=== PATIENT | male | born 1960 | race Caucasian/White ===

== ENCOUNTER 2016-06-27 04:42 | Emergency (ER) | payer OTHER ==
[~2016-06-27] VITALS: Ht 172.7 cm; Wt 86.2 kg
[~2016-06-27 04:42] MED LIST: AMITRIPTYLINE H10 M1 PO; ATORVASTATIN CA20 MG PO; CARISOPRODOL350 M1 PO; FLEXERIL10 MG PO; HYDROCODON-ACE1 EAC1 PO; LISINOPRIL10 MG PO; MULTI-DAY VITA1 EACH PO; NORCO 5-325 TA1 EACH PO; SOMA250 M1 PO; VICODIN HP 3001 TAB PO; VICODIN5-300 PO
[2016-06-27 05:18] LABS: ABSOLUTE BASOPHIL COUNT 0 /CUMM (0.0-0.2); ABSOLUTE EOSINOPHIL COUNT 0.1 /CUMM (0.0-0.7); ABSOLUTE GRANULOCYTE CT 3.6 /CUMM (1.4-6.5); ABSOLUTE LYMPH COUNT 1.6 /CUMM (1.2-3.4); ABSOLUTE MONOCYTE COUNT 0.5 /CUMM (0.10-0.60); BASOPHIL % 0.5 % (0.0-2.0); EOSINOPHIL % 1.9 % (0-5); MEAN CORPUSCULAR HGB 30.1 PG (27.0-31.0); MEAN PLATELET VOLUME 8.5 FL (7.4-10.4); PLATELET COUNT 184 /CUMM (130-400); RBC DISTRIBUTION WIDTH 13.1 % (11.5-14.5); RED BLOOD CELL CT 4.94 /CUMM (4.70-6.10); WHITE BLOOD CELL COUNT 5.9 /CUMM (4.8-10.8)
--- NOTE | 2016-06-27 05:32 | CT SCAN REPORT ---
EXAMINATION: CT ABDOMEN AND PELVIS WITHOUT CONTRAST CLINICAL INFORMATION: Right flank pain. History of kidney stones. COMPARISON: CT scan abdomen pelvis 01/24/2016 TECHNIQUE: Multidetector volumetric imaging was performed from the superior aspect of the liver through the pubic symphysis. Sagittal and coronal reformatted images were obtained on the technologist's workstation. No oral or intravenous contrast. DLP: 590.52 mGy-cm FINDINGS: LUNG BASES: The visualized lung bases are unremarkable. LIVER, GALLBLADDER, AND BILIARY TREE: The liver is normal in size, shape, and attenuation. No focal hepatic lesion or biliary ductal dilatation is present. The gallbladder is unremarkable with no evidence of radiopaque gallstones, gallbladder wall thickening, or obvious pericholecystic inflammatory changes. PANCREAS: Unremarkable. SPLEEN: Unremarkable. ADRENAL GLANDS: Unremarkable. KIDNEYS AND URETERS: There is hydronephrosis of right kidney with dilatation of the right renal pelvis and calyces and proximal right ureter. There is obstructing stones at the mid right ureter at about the level of the L4 vertebrae. 2 adjacent stones. These 2 stones together measure 0.8 x 0.3 cm in size, coronal image 602. There are multiple additional stones in the right kidney. These range in size from about 1 mm to the largest in the midpole right kidney measuring 6 mm. There are multiple stones in left kidney as well. Largest in the upper pole measuring 9 mm. No hydronephrosis of left kidney. No left ureteral stone. BLADDER: Unremarkable. GASTROINTESTINAL TRACT: There is mild diverticulosis of colon. Most of the diverticula in the left colon. No diverticulitis. No bowel wall thickening or edema. No bowel obstruction. Moderate volume of stool throughout the colon. The appendix is normal. Small bowel loops are unremarkable. ABDOMINAL WALL: No significant hernia is appreciated. LYMPH NODES: Normal. VASCULAR: Atherosclerotic vascular wall calcifications of aorta and iliac vessels without aneurysm. PELVIC VISCERA: Coarse calcifications within the prostate. OSSEOUS STRUCTURES: Unremarkable. IMPRESSION: Hydronephrosis of right kidney due to an obstructing stones in the mid right ureter. Additional multiple bilateral nonobstructive renal calculi.
--- NOTE | 2016-06-27 05:41 | ED GI/GU/ABDOMINAL COMPLAINT ---
History of Present Illness General Chief Complaint: Abdominal Pain/Flank Pain Stated Complaint: ? KIDNEY STONE HX OF SAME Source: patient, old records Exam Limitations: no limitations Vital Signs & Intake/Output Vital Signs & Intake/Output Vital Signs Date Time Temp Pulse Resp B/P Pulse O2 O2 Flow FiO2 Ox Delivery Rate 06/27 0505 97 Room Air 06/27 0453 97.8 83 18 164/97 96 Room Air Allergies Coded Allergies: Penicillins (HIVES 01/24/16) Sulfa (Sulfonamide Antibiotics) (HIVES 01/24/16) codeine (HIVES 01/24/16) Reconcile Medications Atorvastatin Calcium (Lipitor) 20 MG TAB 1 TAB PO DAILY CHOLESTEROL (Reported ) Carisoprodol 350 MG TABLET 1 TAB PO PRN MUSCLE RELAXER (Reported) Carisoprodol (SOMA) 250 MG TABLET 1 TAB PO BID PAIN Hydrocodone/Acetaminophen (Hydrocodon-Acetaminophn 10-325) 10 MG-325 MG TABLET 1 TAB PO PRN PAIN (Reported) Hydrocodone/Acetaminophen ([place] 5-325 Tablet) 5 MG-325 MG TABLET 1 TAB PO Q4- 6 PRN PRN PAIN Ketorolac Tromethamine 10 MG TABLET 1 TAB PO Q6P PRN kidney stone patient received IV Toradol in the emergency department Lisinopril 10 MG TAB 1 TAB PO DAILY BP (Reported) Multivitamin (Multi-Day Vitamins) 1 EACH TABLET 1 TAB PO DAILY SUPPLEMENT ( Reported) Oxycodone HCl/Acetaminophen (Percocet 5-325 MG Tablet) 5 MG-325 MG TABLET 1-2 TAB PO Q6P PRN pain Tamsulosin HCl (Flomax) 0.4 MG CAP.ER.24H 1 CAP PO DAILY KIDNEY STONE Triage Note: PT FROM HOME C/O KIDNEY STONES? PT STATES AROUND 0300 HE AWOKE WITH A SHARP RIGHT SIDED FLANK PAIN. PT NAUSEA DENIES VOMITTING/D. PT STATES HX OF KIDNEY STONES AND KNOWS IT IS ONE. PT STATES LAST WEEK "I THINK I PASSED A STONE,I WAS PEEING BLOOD" AWAITING PROVIDER EVAL Triage Nurses Notes Reviewed? yes HPI: Patient presents for evaluation of right flank pain that began suddenly awakening him from sleep tonight. Patient states that last week had episodes of hematuria and back pain. He has had multiple kidney stones in the past and did not think much of those episodes as he was not having any flank pain. Tonight however he began having flank pain consistent with prior kidney stone episodes. The pain is severe sharp and constant. Nothing seems to make him feel better. Past History Travel History Traveled to [place] past 21 day No Medical History Any Pertinent Medical History? see below for history Cardiovascular: hypertension, hyperlipidemia Renal: nephrolithiasis Surgical History Surgical History: non-contributory Psychosocial History What is your primary language Honduran Tobacco Use: Never used ETOH Use: occasional use Family History Hx Contributory? No Review of Systems Review of Systems Constitutional: Reports: no symptoms. EENTM: Reports: no symptoms. Respiratory: Reports: no symptoms. Cardiovascular: Reports: no symptoms. GI: Reports: no symptoms. Genitourinary: Reports: see HPI. Musculoskeletal: Reports: no symptoms. Skin: Reports: no symptoms. Neurological/Psychological: Reports: no symptoms. Hematologic/Endocrine: Reports: no symptoms. Immunologic/Allergic: Reports: no symptoms. All Other Systems: Reviewed and Negative Physical Exam Physical Exam Gastrointestinal: see below Comments: Gen.: Well-nourished, well-developed, no acute respiratory distress. Moderate distress secondary to right flank pain. Head: Normocephalic, atraumatic. Eyes: Normal inspection bilaterally Ears: Normal inspection bilaterally Nose: Normal inspection Throat/mouth : Moist mucosa Neck: Supple, full range of motion, no goiter Heart: Regular rate and rhythm, no murmurs rubs or gallops Lungs: Clear to auscultation bilaterally with normal air entry Chest: Nontender Back: Normal range of motion, mild right CVAT Abdomen: Soft, nontender, nondistended, normal bowel sounds Extremities: Normal range of motion grossly, equal radial pulses, no cyanosis clubbing or edema Neurologic: Cranial nerves grossly intact, speech is clear Skin: warm and dry Psychiatric: Calm, cooperative, no apparent delusions or hallucinations Core Measures ACS in differential dx? No Severe Sepsis Present: No Septic Shock Present: No Progress Differential Diagnosis: ureterolithiasis Plan of Care: Orders Procedure Date/time Status URINALYSIS 06/27 0500 Active LIPASE 06/27 0500 Complete COMPREHENSIVE METABOLIC PANEL 06/27 0500 Complete CBC WITHOUT DIFFERENTIAL 06/27 0500 Complete Current Medications Sig/Cristiano Start time Last Medication Dose Stop Time Status Admin Oxycodone/ 2 TAB ONCE ONE 06/27 0600 UNVr Acetaminophen 06/27 0601 (Percocet) Laboratory Tests 06/27/16 0505: Anion Gap 9, Estimated GFR > 60, BUN/Creatinine Ratio 26.3 H, Glucose 127 H, Calcium 9.9, Total Bilirubin 0.5, AST 23, ALT 42, Alkaline Phosphatase 67, Total Protein 7.8, Albumin 4.3, Globulin 3.5, Albumin/Globulin Ratio 1.2, Lipase 92, CBC w Diff NO MAN DIFF REQ, RBC 4.94, MCV 91.0, MCH 30.1, RDW 13.1, MPV 8.5, Gran % 62.0, Lymphocytes % 27.0, Monocytes % 8.6, Eosinophils % 1.9, Basophils % 0.5, Absolute Granulocytes 3.6, Absolute Lymphocytes 1.6, Absolute Monocytes 0.5 , Absolute Eosinophils 0.1, Absolute Basophils 0, PUBS MCHC 33.0 Diagnostic Imaging: Discussed w/RAD: CT Scan. Radiology Impression: PATIENT: GERMAN LANE PRESENT AGE: 55 PATIENT ACCOUNT NO: [id number] : 60 LOCATION: [facility] ORDERING PHYSICIAN: RUBEN BISWAS MD SERVICE DATE: 06/27/16 EXAM TYPE: CAT - CT ABD & PELVIS W/O IV CONTRAS EXAMINATION: CT ABDOMEN AND PELVIS WITHOUT CONTRAST CLINICAL INFORMATION: Right flank pain. History of kidney stones. COMPARISON: CT scan abdomen pelvis 01/24/2016 TECHNIQUE: Multidetector volumetric imaging was performed from the superior aspect of the liver through the pubic symphysis. Sagittal and coronal reformatted images were obtained on the technologist's workstation. No oral or intravenous contrast. DLP: 590.52 mGy-cm FINDINGS: LUNG BASES: The visualized lung bases are unremarkable. LIVER, GALLBLADDER, AND BILIARY TREE: The liver is normal in size, shape, and attenuation. No focal hepatic lesion or biliary ductal dilatation is present. The gallbladder is unremarkable with no evidence of radiopaque gallstones, gallbladder wall thickening, or obvious pericholecystic inflammatory changes. PANCREAS: Unremarkable. SPLEEN: Unremarkable. ADRENAL GLANDS: Unremarkable. KIDNEYS AND URETERS: There is hydronephrosis of right kidney with dilatation of the right renal pelvis and calyces and proximal right ureter. There is obstructing stones at the mid right ureter at about the level of the L4 vertebrae. 2 adjacent stones. These 2 stones together measure 0.8 x 0.3 cm in size, coronal image 602. There are multiple additional stones in the right kidney. These range in size from about 1 mm to the largest in the midpole right kidney measuring 6 mm. There are multiple stones in left kidney as well. Largest in the upper pole measuring 9 mm. No hydronephrosis of left kidney. No left ureteral stone. BLADDER: Unremarkable. GASTROINTESTINAL TRACT: There is mild diverticulosis of colon. Most of the diverticula in the left colon. No diverticulitis. No bowel wall thickening or edema. No bowel obstruction. Moderate volume of stool throughout the colon. The appendix is normal. Small bowel loops are unremarkable. ABDOMINAL WALL: No significant hernia is appreciated. LYMPH NODES: Normal. VASCULAR: Atherosclerotic vascular wall calcifications of aorta and iliac vessels without aneurysm. PELVIC VISCERA: Coarse calcifications within the prostate. OSSEOUS STRUCTURES: Unremarkable. IMPRESSION: Hydronephrosis of right kidney due to an obstructing stones in the mid right ureter. Additional multiple bilateral nonobstructive renal calculi. DICTATED BY: VERÓNICA BETANCOURT MD DATE/TIME DICTATED:520 PRODUCTION RECORDER:ANITA DATE/TIME TRANSCRIBED:06/27/16520 CONFIDENTIAL, DO NOT COPY WITHOUT APPROPRIATE AUTHORIZATION. <Electronically signed in Other Vendor System> SIGNED BY: VERÓNICA BETANCOURT MD 06/27/16 0532 Initial ED EKG: none Comments: 06/27/2016 5:47:22 AM patient updated on test results. He feels much better than when his pain started. I will convert him over to Percocet and he will follow up with Dr. Escalera. Departure Departure Disposition: HOME OR SELF CARE Condition: Stable Clinical Impression Primary Impression: Ureterolithiasis Referrals: TATI ASTUDILLO,MATT Dunham (PCP/Family) Additional Instructions: Toradol, flomax and Percocet as prescribed. Follow-up with your urologist tomorrow for reevaluation. Return if any concerns or sudden worsening. Please note that there might be incidental findings in your evaluation that are unrelated to the current emergency department visit. Please notify your primary care doctor about this emergency department visit in order to obtain and review all of the testing performed so that these incidental findings can be monitored as needed. If you had an x-ray performed, please understand that some fractures may not be seen on the initial set of x-rays. If your symptoms persist you might need a repeat set of x-rays to check for such a fracture. If you had a laceration evaluated, please understand that foreign bodies such as glass or wood may not be visible to the naked eye or on plain x-rays. If the wound becomes red, swollen, increasingly more painful or if there is any drainage from the wound, please have it reevaluated by a physician for the possibility of a retained foreign body. Thank you for choosing the [facility] Emergency Department for your care. It was a pleasure to serve you today. Ruben Biswas M.D. [facility] Departure Forms: Customer Survey General Discharge Information Prescriptions: Current Visit Scripts Ketorolac Tromethamine 1 TAB PO Q6P PRN kidney stone #16 TAB patient received IV Toradol in the emergency department Oxycodone HCl/Acetaminophen (Percocet 5-325 MG Tablet) 1-2 TAB PO Q6P PRN pain #20 TAB Tamsulosin HCl (Flomax) 1 CAP PO DAILY #5 CAP Critical Care Note Critical Care Note Critical Care Time: 30-74 min
[2016-06-27] MEDS ORDERED: KETOROLAC TROME10 M1 PO (05:49)
[2016-06-27] MEDS ORDERED: FLOMAX0.4 M1 PO (05:49)
[2016-06-27] MEDS ORDERED: PERCOCET 5-3251 EACH PO (05:49)
[2016-06-27 05:51] VITALS: BP 152/88
[2016-06-28] MEDS ORDERED: ZOFRAN ODT4 M1 SL (06:47)
[2016-06-28] MEDS ORDERED: PERCOCET 5-3251 EACH PO (11:09)
== END 2016-06-27 06:04 ==
LOC: ERH 04:42
PROVIDERS: Emergency Medicine
DX: N20.1 Calculus of ureter (principal)
CPT/HCPCS: 74176; 96361; 96374; 96375; J1885; J2405

== ENCOUNTER 2016-06-28 06:07 | Emergency (ER) | payer OTHER ==
[~2016-06-28] VITALS: Ht 172.7 cm; Wt 86.2 kg
[~2016-06-28 06:07] MED LIST changes: +FLOMAX0.4 M1 PO; +KETOROLAC TROME10 M1 PO; +PERCOCET 5-3251 EACH PO
--- NOTE | 2016-06-28 06:22 | ED GI/GU/ABDOMINAL COMPLAINT ---
See Addendum History of Present Illness General Chief Complaint: Abdominal Pain/Flank Pain Stated Complaint: "I HAVE KIDNEY STONES" Source: patient Exam Limitations: no limitations Vital Signs & Intake/Output Vital Signs & Intake/Output Vital Signs Date Time Temp Pulse Resp B/P Pulse O2 O2 Flow FiO2 Ox Delivery Rate 06/28 0845 98.2 88 18 151/97 99 Room Air 06/28 0701 98.4 87 18 144/87 100 Room Air 06/28 0629 100 Room Air 06/28 0620 96.8 100 20 173/95 95 Room Air Allergies Coded Allergies: Penicillins (HIVES 01/24/16) Sulfa (Sulfonamide Antibiotics) (HIVES 01/24/16) codeine (HIVES 01/24/16) Triage Note: PT STATES HE WAS HERE 2 MORNING AGO AND DIAGNOSED WITH A KIDNEY STONE. PT STATES HE WAS SENT HOME WITH SCRIPTS FOR FLOMAX, TORADOL AND PERCOCET. PT STATES PAIN WAS FINE YESTERDAY BECAUSE HE TOOK MEDS SCHEDULED, BUT HE WOKE UP THIS MORNING WITH SEVERE PAIN. PER PT HE HAS NOT TAKEN HIS PRESCRIBED PAIN MEDS THIS MORNING. Triage Nurses Notes Reviewed? yes Onset: Gradual Duration: hour(s): Timing: recent history Quality/Severity: stabbing Location: right flank Radiation: no radiation Activities at Onset: sleep Prior Abdominal Problems: similar symptoms Modifying Factors: Improves With: other (BETTER WITH PERCOCET). Associated Symptoms: abdominal pain, nausea/vomiting HPI: 55 yo gentleman h/o kidney stones, presents with right flank pain, consistent with prior episodes of renal colic. He notes that he was seen here yesterday for similar symptoms, had a ct scan which revealed 2 kidney stones, togther measuring 8mm. He states, "Yesterday, I went home, I took percocet... I was fine all day, but when I woke up the pain came back." He notes mild nausea, no vomiting. He is otherwise well. (GENARO ASTUDILLO,CASTRO Miller) Reconcile Medications Atorvastatin Calcium (Lipitor) 20 MG TAB 1 TAB PO DAILY CHOLESTEROL (Reported ) Carisoprodol 350 MG TABLET 1 TAB PO PRN MUSCLE RELAXER (Reported) Carisoprodol (SOMA) 250 MG TABLET 1 TAB PO BID PAIN Hydrocodone/Acetaminophen (Hydrocodon-Acetaminophn 10-325) 10 MG-325 MG TABLET 1 TAB PO PRN PAIN (Reported) Hydrocodone/Acetaminophen ([place] 5-325 Tablet) 5 MG-325 MG TABLET 1 TAB PO Q4- 6 PRN PRN PAIN Ketorolac Tromethamine 10 MG TABLET 1 TAB PO Q6P PRN kidney stone patient received IV Toradol in the emergency department Lisinopril 10 MG TAB 1 TAB PO DAILY BP (Reported) Multivitamin (Multi-Day Vitamins) 1 EACH TABLET 1 TAB PO DAILY SUPPLEMENT ( Reported) Ondansetron (Zofran Odt) 4 MG TAB.RAPDIS 1 TAB SL TID PRN nausea Oxycodone HCl/Acetaminophen (Percocet 5-325 MG Tablet) 5 MG-325 MG TABLET 1-2 TAB PO Q6P PRN pain Tamsulosin HCl (Flomax) 0.4 MG CAP.ER.24H 1 CAP PO DAILY KIDNEY STONE (JAMES CEDENO DO) Past History Travel History Traveled to [place] past 21 day No Medical History Any Pertinent Medical History? see below for history Cardiovascular: hypertension, hyperlipidemia Renal: nephrolithiasis Surgical History Surgical History: non-contributory Psychosocial History What is your primary language Maltese Tobacco Use: Never used ETOH Use: occasional use Illicit Drug Use: denies illicit drug use Family History Hx Contributory? No (GENARO ASTUDILLO,CASTRO Miller) Review of Systems Review of Systems Constitutional: Reports: no symptoms. EENTM: Reports: no symptoms. Respiratory: Reports: no symptoms. Cardiovascular: Reports: no symptoms. GI: Reports: no symptoms. Genitourinary: Reports: no symptoms. Musculoskeletal: Reports: no symptoms. Skin: Reports: no symptoms. Neurological/Psychological: Reports: no symptoms. Hematologic/Endocrine: Reports: no symptoms. Immunologic/Allergic: Reports: no symptoms. All Other Systems: Reviewed and Negative (GENARO ASTUDILLO,CASTRO Miller) Physical Exam Physical Exam General Appearance: well developed/nourished, mild distress, moderate distress Head: atraumatic, normal appearance Eyes: Bilateral: normal appearance. Ears, Nose, Throat, Mouth: hearing grossly normal Neck: normal inspection, supple, full range of motion, normal alignment Respiratory: normal breath sounds, chest non-tender, no respiratory distress, quiet respiration, lungs clear Cardiovascular: regular rate/rhythm Gastrointestinal: normal bowel sounds, soft, non-tender, no organomegaly Back: normal inspection, normal range of motion Extremities: normal range of motion Neurologic/Psych: no motor/sensory deficits, awake, alert, oriented x 3 Skin: intact, normal color, warm/dry Core Measures ACS in differential dx? No Severe Sepsis Present: No Septic Shock Present: No (GENARO ASTUDILLO,CASTRO Miller) Progress Differential Diagnosis: renal colic vs kidney stones vs back pain vs other. Plan of Care: Orders Procedure Date/time Status Nothing by Mouth 06/[address] in observation 06/28 924 Active Code Status 06/28 924 Active URINALYSIS 06/28 621 Complete LIPASE 06/28 621 Complete HEPATIC FUNCTION PANEL 06/28 621 Complete CBC WITHOUT DIFFERENTIAL 06/28 621 Complete BASIC METABOLIC PANEL 06/28 621 Complete AMYLASE 06/28 621 Complete Current Medications Sig/Cristiano Start time Last Medication Dose Stop Time Status Admin Lisinopril 10 MG ONCE ONE 06/28 929 AC (Prinivil) 06/28 930 Tamsulosin HCl 0.4 MG ONCE ONE 06/28 929 AC (Flomax) 06/28 930 Laboratory Tests 06/28/16 0653: Urinalysis LIGHT H, Urine Color YEL, Urine Clarity CLEAR, Urine pH 6.0, Ur Specific [place] >= 1.030, Urine Protein NEG, Urine Ketones NEG, Urine Nitrite NEG, Urine Bilirubin NEG, Urine Urobilinogen 0.2, Ur Leukocyte Esterase NEG, Ur Microscopic SEDIMENT EXAMINED, Urine RBC 25-50 H, Urine WBC RARE, Ur Epithelial Cells FEW, Urine Bacteria RARE H, Urine Mucus MOD H, Urine Hemoglobin MOD H, Urine Glucose NEG 06/28/16629: Anion Gap 6, Estimated GFR > 60, BUN/Creatinine Ratio 22.0, Glucose 122 H, Calcium 9.5, Total Bilirubin 0.5, Direct Bilirubin 0.4, AST 23, ALT 42, Alkaline Phosphatase 66, Total Protein 7.1, Albumin 4.1, Amylase 87, Lipase 350 H, CBC w Diff NO MAN DIFF REQ, RBC 4.77, MCV 90.9, MCH 30.1, RDW 13.6, MPV 8.2, Gran % 65.7, Lymphocytes % 20.8, Monocytes % 11.2 H, Eosinophils % 1.9, Basophils % 0.4, Absolute Granulocytes 6.2, Absolute Lymphocytes 2.0, Absolute Monocytes 1.1 H, Absolute Eosinophils 0.2, Absolute Basophils 0, PUBS MCHC 33.2 Diagnostic Imaging: Viewed by Me: CT Scan. Discussed w/RAD: CT Scan. Radiology Impression: abd/pelvic ct... 8x3mm right mid ureteral stone. Initial ED EKG: none Hand-Off Endorsed To: JAMES CEDENO DO Pending: labs Comments: PATIENT: GERMAN [address] PRESENT AGE: 55 PATIENT ACCOUNT NO: [id number] : 60 LOCATION: [facility] ORDERING PHYSICIAN: JAMES MCDONALD MD SERVICE DATE: 06/27/16 EXAM TYPE: CAT - CT ABD & PELVIS W/O IV CONTRAS EXAMINATION: CT ABDOMEN AND PELVIS WITHOUT CONTRAST CLINICAL INFORMATION: Right flank pain. History of kidney stones. COMPARISON: CT scan abdomen pelvis 01/24/2016 TECHNIQUE: Multidetector volumetric imaging was performed from the superior aspect of the liver through the pubic symphysis. Sagittal and coronal reformatted images were obtained on the technologist's workstation. No oral or intravenous contrast. DLP: 590.52 mGy-cm FINDINGS: LUNG BASES: The visualized lung bases are unremarkable. LIVER, GALLBLADDER, AND BILIARY TREE: The liver is normal in size, shape, and attenuation. No focal hepatic lesion or biliary ductal dilatation is present. The gallbladder is unremarkable with no evidence of radiopaque gallstones, gallbladder wall thickening, or obvious pericholecystic inflammatory changes. PANCREAS: Unremarkable. SPLEEN: Unremarkable. ADRENAL GLANDS: Unremarkable. KIDNEYS AND URETERS: There is hydronephrosis of right kidney with dilatation of the right renal pelvis and calyces and proximal right ureter. There is obstructing stones at the mid right ureter at about the level of the L4 vertebrae. 2 adjacent stones. These 2 stones together measure 0.8 x 0.3 cm in size, coronal image 602. There are multiple additional stones in the right kidney. These range in size from about 1 mm to the largest in the midpole right kidney measuring 6 mm. There are multiple stones in left kidney as well. Largest in the upper pole measuring 9 mm. No hydronephrosis of left kidney. No left ureteral stone. BLADDER: Unremarkable. GASTROINTESTINAL TRACT: There is mild diverticulosis of colon. Most of the diverticula in the left colon. No diverticulitis. No bowel wall thickening or edema. No bowel obstruction. Moderate volume of stool throughout the colon. The appendix is normal. Small bowel loops are unremarkable. ABDOMINAL WALL: No significant hernia is appreciated. LYMPH NODES: Normal. VASCULAR: Atherosclerotic vascular wall calcifications of aorta and iliac vessels without aneurysm. PELVIC VISCERA: Coarse calcifications within the prostate. OSSEOUS STRUCTURES: Unremarkable. IMPRESSION: Hydronephrosis of right kidney due to an obstructing stones in the mid right ureter. Additional multiple bilateral nonobstructive renal calculi. DICTATED BY: VERÓNICA BETANCOURT MD DATE/TIME DICTATED:06/27/16520 BUGGY OPERATOR:ANITA DATE/TIME TRANSCRIBED:06/27/16520 CONFIDENTIAL, DO NOT COPY WITHOUT APPROPRIATE AUTHORIZATION. <Electronically signed in Other Vendor System> SIGNED BY: VERÓNICA BETANCOURT MD 06/27/16 0532 (GENARO ASTUDILLO,CASTRO Miller) Departure Departure Disposition: STILL A PATIENT Condition: Stable Clinical Impression Primary Impression: Renal colic Referrals: TATI ASTUDILLO,MATT Dunham (PCP/Family) Departure Forms: Customer Survey General Discharge Information (GENARO ASTUDILLO,CASTRO Miller) Departure Prescriptions: Current Visit Scripts Ondansetron (Zofran Odt) 1 TAB SL TID PRN nausea #10 TAB Comments 06/28/16 The patient was signed out to me by Dr. Pierce at 7 AM. He is having ongoing severe right-sided flank pain. He is requiring multiple doses of IV Dilaudid. He has a known 8 mm stone. I paged Dr. Escalera and waiting for call back. Observation Note Spoke With: DEONNA ASTUDILLORICHMOND Physician Advisor Notified: JAMES CEDENO DO Place Patient In: Non-ED OBS Care Area Rationale for Observation: My rational for observation is as follows [the patient needs to be placed in observation for IV fluids, IV pain medication, likely lithotripsy and stent placement in the morning.]. 06/28/16 9:30 AM The patient has been placed under Dr. Escalera's service to inpatient observation. The surgical PAs been paged. The patient had been signed out to me by Dr. Pierce at 7 AM (JAMES CEDENO DO)
[2016-06-28 06:37] LABS: ABSOLUTE BASOPHIL COUNT 0 /CUMM (0.0-0.2); ABSOLUTE EOSINOPHIL COUNT 0.2 /CUMM (0.0-0.7); ABSOLUTE GRANULOCYTE CT 6.2 /CUMM (1.4-6.5); ABSOLUTE MONOCYTE COUNT 1.1 /CUMM (0.10-0.60); BASOPHIL % 0.4 % (0.0-2.0); EOSINOPHIL % 1.9 % (0-5); GRANULOCYTE % 65.7 % (42.2-75.2); HEMATOCRIT 43.4 % (42-52); MEAN CORPUSCULAR HGB 30.1 PG (27.0-31.0); MEAN CORPUSCULAR HGB CONC 33.2 G/DL (33.0-37.0); MEAN CORPUSCULAR VOLUME 90.9 FL (80.0-94.0); MEAN PLATELET VOLUME 8.2 FL (7.4-10.4); PLATELET COUNT 175 /CUMM (130-400); RBC DISTRIBUTION WIDTH 13.6 % (11.5-14.5); RED BLOOD CELL CT 4.77 /CUMM (4.70-6.10)
[2016-06-28 06:43] LABS: WHITE BLOOD CELL COUNT 9.4 /CUMM (4.8-10.8)
[2016-06-28] MEDS ORDERED: ZOFRAN ODT4 M1 SL (06:47)
--- NOTE | 2016-06-28 11:02 | Cons- Urology ---
General Information and HPI Consulting Request Date of Consult: 06/28/16 Requested By: Dr. Landa Reason for Consult: Abdominal pain, nephrolithiasis. Source of Information: patient Exam Limitations: no limitations History of Present Illness: Patient is a 55-year-old male with past medical history significant for hypertension, hyperlipidemia, and a history of renal stones who presented to the ED with complaints of acute onset of right flank pain since about 5 AM today. Patient states that he was in the ED early yesterday morning around 3 AM with similar symptoms. CT scan performed at that time revealed to obstructing ureteral stones measuring 8 mm together with right-sided hydronephrosis. Patient was sent home with a prescription for Percocet, which he took intermittently throughout the day and was relatively comfortable until the symptoms returned this morning. The plan was originally to admit patient for 23 hour observation and lithotripsy tomorrow, however while awaiting urologic evaluation, patient was able to void several times and passed 3 very small "stones". Per RN reports, they appeared to be about 1-2 mm and were sent to the lab. Patient now reports complete resolution of pain and is requesting to be discharged home. Allergies/Medications Allergies: Coded Allergies: Penicillins (HIVES 01/24/16) Sulfa (Sulfonamide Antibiotics) (HIVES 01/24/16) codeine (HIVES 01/24/16) Home Med List: Atorvastatin Calcium (Lipitor) 20 MG TAB 1 TAB PO DAILY CHOLESTEROL (Reported ) Carisoprodol 350 MG TABLET 1 TAB PO PRN MUSCLE RELAXER (Reported) Carisoprodol (SOMA) 250 MG TABLET 1 TAB PO BID PAIN Hydrocodone/Acetaminophen (Hydrocodon-Acetaminophn 10-325) 10 MG-325 MG TABLET 1 TAB PO PRN PAIN (Reported) Hydrocodone/Acetaminophen ([place] 5-325 Tablet) 5 MG-325 MG TABLET 1 TAB PO Q4- 6 PRN PRN PAIN Ketorolac Tromethamine 10 MG TABLET 1 TAB PO Q6P PRN kidney stone patient received IV Toradol in the emergency department Lisinopril 10 MG TAB 1 TAB PO DAILY BP (Reported) Multivitamin (Multi-Day Vitamins) 1 EACH TABLET 1 TAB PO DAILY SUPPLEMENT ( Reported) Ondansetron (Zofran Odt) 4 MG TAB.RAPDIS 1 TAB SL TID PRN nausea Oxycodone HCl/Acetaminophen (Percocet 5-325 MG Tablet) 5 MG-325 MG TABLET 1-2 TAB PO Q6P PRN pain Oxycodone HCl/Acetaminophen (Percocet 5-325 MG Tablet) 5 MG-325 MG TABLET 1 TAB PO BID PRN pain Tamsulosin HCl (Flomax) 0.4 MG CAP.ER.24H 1 CAP PO DAILY KIDNEY STONE Past History Medical History Cardiovascular: hypertension, hyperlipidemia Renal: nephrolithiasis Surgical History Pertinent Surgical History: right shoulder surgery x2, right knee surgery Psychosocial History Where Do You Live? Home Who Do You Live With? 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 He appears in no acute distress at this time. He is noted to be ambulating without difficulty. Cardiac: Regular Pulmonary: Lungs are clear bilaterally. Abdomen: Is soft and mildly distended. There is no significant tenderness, guarding, rigidity noted. Normoactive bowel sounds were heard. No costovertebral tenderness. Last 24 Hours of Labs: Laboratory Tests 06/28 04/ 0653 0630 Chemistry Sodium (137 - 145 mmol/L) 139 Potassium (3.5 - 5.1 mmol/L) 4.1 Chloride (98 - 107 mmol/L) 107 Carbon Dioxide (22 - 30 mmol/L) 27 Anion Gap (5 - 16) 6 BUN (9 - 20 mg/dL) 22 H Creatinine (0.7 - 1.2 mg/dL) 1.0 Estimated GFR (>60 ml/min) > 60 BUN/Creatinine Ratio (7 - 25 %) 22.0 Glucose (65 - 99 mg/dL) 122 H Calcium (8.4 - 10.2 mg/dL) 9.5 Total Bilirubin (0.2 - 1.3 mg/dL) 0.5 Direct Bilirubin (< 0.4 mg/dL) 0.4 AST (17 - 59 U/L) 23 ALT (21 - 72 U/L) 42 Alkaline Phosphatase (< 127 U/L) 66 Total Protein (6.3 - 8.2 g/dL) 7.1 Albumin (3.5 - 5.0 g/dL) 4.1 Amylase (30 - 110 U/L) 87 Lipase (23 - 300 U/L) 350 H Hematology CBC w Diff NO MAN DIFF REQ WBC (4.8 - 10.8 /CUMM) 9.4 RBC (4.70 - 6.10 /CUMM) 4.77 Hgb (14.0 - 18.0 G/DL) 14.4 Hct (42 - 52 %) 43.4 MCV (80.0 - 94.0 FL) 90.9 MCH (27.0 - 31.0 PG) 30.1 RDW (11.5 - 14.5 %) 13.6 Plt Count (130 - 400 /CUMM) 175 MPV (7.4 - 10.4 FL) 8.2 Gran % (42.2 - 75.2 %) 65.7 Lymphocytes % (20.5 - 51.1 %) 20.8 Monocytes % (1.7 - 9.3 %) 11.2 H Eosinophils % (0 - 5 %) 1.9 Basophils % (0.0 - 2.0 %) 0.4 Absolute Granulocytes (1.4 - 6.5 /CUMM) 6.2 Absolute Lymphocytes (1.2 - 3.4 /CUMM) 2.0 Absolute Monocytes (0.10 - 0.60 /CUMM) 1.1 H Absolute Eosinophils (0.0 - 0.7 /CUMM) 0.2 Absolute Basophils (0.0 - 0.2 /CUMM) 0 PUBS MCHC (33.0 - 37.0 G/DL) 33.2 Urines Urinalysis LIGHT H Urine Color (YEL,AMB,STR) YEL Urine Clarity (CLEAR) CLEAR Urine pH (5.0 - 8.0) 6.0 Ur Specific [place] (1.001 - 1.035) >= 1.030 Urine Protein (NEG,<30 MG/DL) NEG Urine Ketones (NEG) NEG Urine Nitrite (NEG) NEG Urine Bilirubin (NEG) NEG Urine Urobilinogen (0.1 - 1.0 EU/dl) 0.2 Ur Leukocyte Esterase (NEG) NEG Ur Microscopic SEDIMENT EXAMINED Urine RBC (0 - 5 /HPF) 25-50 H Urine WBC (0 - 2 /HPF) RARE Ur Epithelial Cells (NONE,FEW) FEW Urine Bacteria (NEG/NONE) RARE H Urine Mucus (FEW,NONE) MOD H Urine Hemoglobin (NEG) MOD H Urine Glucose (N MG/DL) NEG Imaging Results: CT scan performed on 07-12 revealed: Assessment/Plan Assessment/Plan Pt is a 55 yo M with a pmh significant for HTN, HLD, and a hx of nephrolithiasis who presents with recurrent renal colic due to obstructing ureteral stones measuring 8mm total between 2 adjacent stones. Pt has since passed what he thinks are 3 small stones, one of which was sent to the lab for analysis ( pending results). He is pain free at this time and requesting discharge home. Dr. Escalera is aware of pt's progress and is agreeable to discharge home with Percocet prn and Flomax. Pt understands the need for increased po fluid intake. He can f/u with Dr. Escalera in his office if symptoms resume. Problem List: 1. Ureterolithiasis 2. Renal colic Consult Acknowledgment - Thank you for your consult request.
[2016-06-28] MEDS ORDERED: PERCOCET 5-3251 EACH PO (11:09)
[2016-06-28 11:10] VITALS: BP 140/86
== END 2016-06-28 11:16 ==
LOC: ERH 06:07
PROVIDERS: Pediatrics
DX: N23 Unspecified renal colic (principal); I10 Essential (primary) hypertension
CPT/HCPCS: 81001; 82355; 96374; 96375; 96376; 99291; J1885; J2405

== ENCOUNTER → 2016-06-29 | Day surgery (SDC) | payer OTHER ==
[~2016-06-29] VITALS: Ht 172.7 cm; Wt 86.2 kg
[~2016-06-29] MED LIST changes: +ZOFRAN ODT4 M1 SL
--- NOTE | 2016-06-29 08:29 | RADIOLOGY REPORT ---
EXAMINATION: XR KIDNEYS, URETER, BLADDER CLINICAL INDICATION: Right kidney stone. Preop for ESWL. COMPARISON: CT of the abdomen and pelvis 06/27/2016. TECHNIQUE: 2 AP supine views of the abdomen are obtained. FINDINGS: There are multiple bilateral renal calculi, as noted on the prior CT scan, the largest of which measures 9 mm on the left and 6 mm on the right. One of the 2 proximal right ureteral calculi, measuring approximately 3 mm, is identified just above the right L4 transverse process. The second 5 mm right ureteral calculus appears to have migrated to the right ureterovesical junction. The bowel gas pattern is unremarkable. IMPRESSION: Multiple bilateral renal calculi. 2 right ureteral calculi in the proximal and distal right ureter.
--- NOTE | 2016-06-29 12:35 | Operative Report ---
Operative/Inv Procedure Report Surgery Date: 06/29/16 Name of Procedure: right ureter (UVJ) stone ESWL. flurosocopy Pre-Operative Diagnosis: right ureter stone with colic and hydronephrosis Post-Operative Diagnosis: same Estimated Blood Loss: none Surgeon/Select Banker: ROCK YING MD Anesthesia: moderate sedation Specimens: none Complications: none Operative/Procedure Note Note: The patient was taken to the operating room and placed on the ESWL table in supine position. With the patient awake, timeout was performed to cofirm correct identity, procedure, laterality, anesth., and other pertinent cash- operative information. The patient's RIGHT flank was placed over the table cut -out, overlying the dome of the shockwave generator. C-arm fluroscopy, as well as renal US, was used to locate the stone, and evaluate the RIGHT kidney. The stone was clearly visible on fluoroscopy at the distal right ureter, measuring approximately 9 mm stone burden. Renal US confimred mild hydronephrosis, with additional renal stones, and no tumor, seen in the right kidney. After adequate anesthesia, the right ureter stone's position was optimized for Shockwave lithotrypsy using fluoroscopy in AP and oblique views. The E.S.W.L. was initiated at low power levels x 200 shocks. After noting the patient's tolerance to the shockwaves, the shock wave power level was quickly maximized. Toward the end of the procedure, the composition of the stone had changed significantly indicating the pulverization of the ureter stone. A total of 3000 shockwaves were delivered to the stone in order to achieve adequate lithotrypsy. The patient tolerated both the procedure well, was awakened, and taken to recovery in satisfactory condition via stretcher. The pt will be dischared home with pain meds, diet orders, and intructions to catch fragments with straining the urine. The patient is to have follow-up renal ultrasound and KUB in 1-2 weeks, prior to follow-up visit in my office. Findings: 9mm right UVJ stone Discharge Disposition: Same Day Admissions
== END ==
LOC: STS 03:14
DX: N13.2 Hydronephrosis with renal and ureteral calculous obstruction (principal); I10 Essential (primary) hypertension; E78.00 Pure hypercholesterolemia, unspecified
CPT/HCPCS: 74000

== ENCOUNTER 2017-08-20 05:57 | Emergency (ER) | payer OTHER ==
[~2017-08-20] VITALS: Ht 172.7 cm; Wt 87.1 kg
[~2017-08-20 05:57] MED LIST changes: +IBUPROFEN800 M1 PO
--- NOTE | 2017-08-20 06:19 | ED GI/GU/ABDOMINAL COMPLAINT ---
History of Present Illness General Chief Complaint: Abdominal Pain/Flank Pain Stated Complaint: PT C/C LOWER ABD PAIN HX KIDNEY STONES NO BM 3DAYS Source: patient Exam Limitations: no limitations Vital Signs & Intake/Output Vital Signs & Intake/Output Vital Signs Date Time Temp Pulse Resp B/P B/P Pulse O2 O2 Flow FiO2 Mean Ox Delivery Rate 08/20 0815 98.1 96 20 145/86 98 Room Air 08/20 0610 99.0 98 18 159/99 97 Room Air Allergies Coded Allergies: Penicillins (HIVES 01/24/16) Sulfa (Sulfonamide Antibiotics) (HIVES 01/24/16) codeine (HIVES 01/24/16) Reconcile Medications Atorvastatin Calcium (Lipitor) 20 MG TAB 1 TAB PO DAILY CHOLESTEROL (Reported ) Ibuprofen 800 MG TABLET 1 TAB PO TID PRN pain Lisinopril 10 MG TAB 1 TAB PO DAILY BP (Reported) Multivitamin (Multi-Day Vitamins) 1 EACH TABLET 1 TAB PO DAILY SUPPLEMENT ( Reported) Ondansetron (Zofran Odt) 4 MG TAB.RAPDIS 1 TAB SL TID nausea Tamsulosin HCl (Flomax) 0.4 MG CAP.ER.24H 1 CAP PO DAILY renal colic Triage Note: PT TO ED C/O LEFT SIDE PAIN THAT GOES TO LEFT LOWER QUADRANT AND NOW TO RT SIDE ABD. STARTED 5 DAYS AGO. PMH OF KIDNEY STONES, FELT DIFFERENT FIRST 3 DAYS, "NOW IT FEELS LIKE A KIDNEY STONE" URINARY FREQUENCY WITH SMALL AMOUNTS. ALSO STATES NO BM IN 3 DAYS, USUALLY GOES DAILY. +NAUSEA FOR A COUPLE DAYS, DENIES AT THIS TIME Triage Nurses Notes Reviewed? yes Onset: Gradual Duration: day(s): Timing: recent history Location: LOWER ABD Radiation: no radiation Activities at Onset: none Prior Abdominal Problems: none Modifying Factors: Worsens With: vomiting. Associated Symptoms: abdominal pain, dysuria, nausea/vomiting HPI: 56 yo gentleman h/o kidney stones, presents with 5 days of left sided lower abdominal discomfort, suprapubic and right lower quadrant discomfort. He notes that his urine appears more cloudy than usual. He had slight nausea which resolved. He notes no fever, chills, vomiting, diarrhea. He is otherwise well. (Stan ASTUDILLO,Jed Miller) Past History Travel History Traveled to [place] past 21 day No Medical History Any Pertinent Medical History? see below for history Cardiovascular: hypertension, hyperlipidemia Renal: nephrolithiasis Musculoskeletal: osteoarthritis Surgical History Surgical History: right shoulder surgery x2 right knee surgery Psychosocial History What is your primary language Micronesian Tobacco Use: Never used ETOH Use: occasional use Illicit Drug Use: denies illicit drug use Family History Hx Contributory? No (Stan ASTUDILLO,Jed Miller) Review of Systems Review of Systems Constitutional: Reports: no symptoms. EENTM: Reports: no symptoms. Respiratory: Reports: no symptoms. Cardiovascular: Reports: no symptoms. GI: Reports: no symptoms. Genitourinary: Reports: no symptoms. Musculoskeletal: Reports: no symptoms. Skin: Reports: no symptoms. Neurological/Psychological: Reports: no symptoms. Hematologic/Endocrine: Reports: no symptoms. Immunologic/Allergic: Reports: no symptoms. All Other Systems: Reviewed and Negative (Stan ASTUDILLO,Jed Miller) Physical Exam Physical Exam General Appearance: well developed/nourished, no apparent distress Head: atraumatic, normal appearance Eyes: Bilateral: normal appearance. Ears, Nose, Throat, Mouth: hearing grossly normal, moist mucous membrane Neck: normal inspection, supple, full range of motion Respiratory: normal breath sounds, chest non-tender, no respiratory distress, quiet respiration, lungs clear Cardiovascular: regular rate/rhythm Gastrointestinal: normal bowel sounds, soft, llq, suprapubic, rlq tenderness to palpation, no rebound, no guarding. Back: normal inspection Extremities: normal range of motion Neurologic/Psych: no motor/sensory deficits, awake, alert, oriented x 3 Skin: intact, normal color, warm/dry Core Measures ACS in differential dx? No Sepsis Present: No Sepsis Focused Exam Completed? No (Stan ASTUDILLO,Jed Miller) Progress Differential Diagnosis: ureterolithiasis, urethritis, UTI/pyelo Plan of Care: Orders Procedure Date/time Status CULTURE,URINE 08/20 636 Active URINALYSIS 08/20 636 Complete LIPASE 08/20 636 Complete HEPATIC FUNCTION PANEL 08/20 636 Complete CBC WITHOUT DIFFERENTIAL 08/20 636 Complete BASIC METABOLIC PANEL 08/20 636 Complete AMYLASE 08/20 636 Complete Current Medications Sig/Cristiano Start time Last Medication Dose Stop Time Status Admin Clindamycin 600 MG ONCE ONE 08/20 0915 AC (Cleocin) 08/20 0944 Dextrose/Water 50 ML (D5W) Laboratory Tests 08/20/17 0734: Anion Gap 10, Estimated GFR > 60, BUN/Creatinine Ratio 27.5 H, Glucose 118 H, Calcium 8.3 L, Total Bilirubin 0.6, Direct Bilirubin 0.2, AST 15 L, ALT 25, Alkaline Phosphatase 67, Total Protein 6.2 L, Albumin 3.4 L, Amylase 44, Lipase 33, CBC w Diff NO MAN DIFF REQ, RBC 4.19 L, MCV 90.2, MCH 30.7, MCHC 34.0, RDW 13.5, MPV 7.8, Gran % 79.6 H, Lymphocytes % 9.9 L, Monocytes % 9.1, Eosinophils % 1.1, Basophils % 0.3, Absolute Granulocytes 8.4 H, Absolute Lymphocytes 1.1 L, Absolute Monocytes 1.0 H, Absolute Eosinophils 0.1, Absolute Basophils 0 08/20/17729: Urine Color YEL, Urine Clarity CLEAR, Urine pH 6.0, Ur Specific [place] 1.025, Urine Protein NEG, Urine Ketones NEG, Urine Nitrite NEG, Urine Bilirubin NEG, Urine Urobilinogen 0.2, Ur Leukocyte Esterase NEG, Ur Microscopic EXAM NOT REQUIRED, Urine Hemoglobin NEG, Urine Glucose NEG Microbiology 08/20 729 URINE ROUT: Urine Culture - RECD IMPRESSION: Acute diverticulitis at the junction of the descending colon and sigmoid colon. There is pericolonic inflammatory phlegmon without discrete abscess. Given the wall thickening, a follow-up study may be warranted to ensure resolution. Bilateral intrarenal calculi are similar compared to prior. No hydronephrosis. Atherosclerosis including coronary artery disease. DICTATED BY: Renuka Solis MD DATE/TIME DICTATED:08/20/17713 DATE NIGHT SITTER:ANITA DATE/TIME TRANSCRIBED:08/20/17713 CONFIDENTIAL, DO NOT COPY WITHOUT APPROPRIATE AUTHORIZATION. <Electronically signed in Other Vendor System> SIGNED BY: Renuka Solis MD 08/20/17735 (Ruben Landa DO) Diagnostic Imaging: Viewed by Me: CT Scan. Discussed w/RAD: CT Scan. Initial ED EKG: pending Hand-Off Endorsed To: Ruben Landa DO Endorsed Time: 0700 Pending: CT, labs (Stan ASTUDILLO,Jed Miller) Departure Departure Disposition: HOME OR SELF CARE Condition: Stable Clinical Impression Primary Impression: Abdominal pain Referrals: Can ASTUDILLO,Yovani Dunham (PCP/Family) Departure Forms: Customer Survey General Discharge Information Comments 08/20/17, 7am... pt with dysuria, h/o kidney stones... will check labs, ct scan, provide supportive medications.... pt signed out to dr. landa. (Stan ASTUDILLO,Jed Miller) Departure Comments IMPRESSION: Acute diverticulitis at the junction of the descending colon and sigmoid colon. There is pericolonic inflammatory phlegmon without discrete abscess. Given the wall thickening, a follow-up study may be warranted to ensure resolution. Bilateral intrarenal calculi are similar compared to prior. No hydronephrosis. Atherosclerosis including coronary artery disease. DICTATED BY: Renuka Solis MD DATE/TIME DICTATED:08/20/17713 DATE NIGHT SITTER:ANITA DATE/TIME TRANSCRIBED:08/20/17713 CONFIDENTIAL, DO NOT COPY WITHOUT APPROPRIATE AUTHORIZATION. <Electronically signed in Other Vendor System> SIGNED BY: Renuka Solis MD 08/20/17 0736 (Ruben Landa DO
--- NOTE | 2017-08-20 07:36 | CT SCAN REPORT ---
EXAMINATION: CT ABDOMEN AND PELVIS WITHOUT CONTRAST CLINICAL INFORMATION: Left lower quadrant pain COMPARISON: CT abdomen and pelvis 01/17/2017 TECHNIQUE: Multidetector volumetric imaging was performed from the superior aspect of the liver through the pubic symphysis. Sagittal and coronal reformatted images were obtained on the technologist's workstation. DLP: 700 mGy-cm FINDINGS: LUNG BASES: Mild atelectasis of the lingula. No pleural or pericardial effusion. At least three-vessel coronary artery disease. LIVER, GALLBLADDER, AND BILIARY TREE: The noncontrast liver is normal in size, shape, and attenuation. Tiny low-density lesion near the tip of the liver is too small to characterize but statistically likely benign. No biliary ductal dilation. The gallbladder is unremarkable with no evidence of radiopaque gallstones, gallbladder wall thickening, or obvious pericholecystic inflammatory changes. PANCREAS: Unremarkable. SPLEEN: Unremarkable. ADRENAL GLANDS: Unremarkable. KIDNEYS AND URETERS: Multiple bilateral renal calculi are again seen, overall similar in size and distribution compared to the prior CT. There is no hydronephrosis. No significant perinephric stranding. No hydroureter or ureteral calculi. BLADDER: Unremarkable. GASTROINTESTINAL TRACT: The stomach and small bowel are nondistended. There is wall thickening and pericolonic inflammation in the left lower quadrant at the junction of the distal descending and sigmoid colon with associated diverticula compatible with acute diverticulitis. No definite associated fluid collection or extraluminal gas. The appendix is unremarkable. ABDOMINAL WALL: There is a small fat-containing right inguinal hernia. LYMPH NODES: No evidence of retroperitoneal or mesenteric lymphadenopathy. VASCULAR: Moderate aortoiliac atherosclerosis. No abdominal aortic aneurysm. PELVIC VISCERA: Nonspecific coarse calcifications within the prostate gland. OSSEOUS STRUCTURES: Mild multilevel degenerative changes of the spine. Bilateral L5 pars defects with grade 1 anterolisthesis of L5 on S1. This is unchanged compared to prior. Focal lucency in the L2 vertebral body again seen most likely representing a vertebral hemangioma. IMPRESSION: Acute diverticulitis at the junction of the descending colon and sigmoid colon. There is pericolonic inflammatory phlegmon without discrete abscess. Given the wall thickening, a follow-up study may be warranted to ensure resolution. Bilateral intrarenal calculi are similar compared to prior. No hydronephrosis. Atherosclerosis including coronary artery disease.
[2017-08-20 07:43] LABS: ABSOLUTE BASOPHIL COUNT 0 /CUMM (0.0-0.2); ABSOLUTE EOSINOPHIL COUNT 0.1 /CUMM (0.0-0.7); ABSOLUTE GRANULOCYTE CT 8.4 /CUMM (1.4-6.5); ABSOLUTE LYMPH COUNT 1.1 /CUMM (1.2-3.4); BASOPHIL % 0.3 % (0.0-2.0); EOSINOPHIL % 1.1 % (0-5); GRANULOCYTE % 79.6 % (42.2-75.2); HEMATOCRIT 37.8 % (42-52); MEAN CORPUSCULAR HGB 30.7 PG (27.0-31.0); MEAN CORPUSCULAR VOLUME 90.2 FL (80.0-94.0); MEAN PLATELET VOLUME 7.8 FL (7.4-10.4); PLATELET COUNT 188 /CUMM (130-400); RBC DISTRIBUTION WIDTH 13.5 % (11.5-14.5); RED BLOOD CELL CT 4.19 /CUMM (4.70-6.10); WHITE BLOOD CELL COUNT 10.6 /CUMM (4.8-10.8)
[2017-08-20] MEDS ORDERED: FLAGYL500 MG PO (09:19)
[2017-08-20] MEDS ORDERED: CIPRO500 M1 PO (09:19)
[2017-08-20 09:35] VITALS: BP 140/80
== END 2017-08-20 09:36 ==
LOC: ERH 05:57
PROVIDERS: Pediatrics
DX: R10.31 Right lower quadrant pain (principal)
CPT/HCPCS: 74176; 81003; 87086; 96361; 96374; 96375; J0131; J1885